=== PATIENT | male | born 1960 | race Caucasian/White ===

== ENCOUNTER 2018-10-12 05:09 | Day surgery (SDC) | payer BC ==
[2018-10-12] MEDS ORDERED: Propofol 200 MG/20 ML SDV IV ONE (05:10)
[2018-10-12] MEDS ORDERED: Lidocaine 1% PF 2 ML SDV INJECT ONE (05:10)
[2018-10-12] MEDS ORDERED: Lactated Ringers 1,000 ML IV SCH (07:15)
--- NOTE | 2018-10-12 08:41 | PCM.OPNOTE ---
- General Post-Op/Procedure Note Date of Surgery/Procedure: 10/12/18 Operative Procedure(s): c scope with bx Findings: cecal polyp Pre Op Diagnosis: screening Post-Op Diagnosis: cecal polyp Anesthesia Technique: MAC Primary Surgeon: Stevo Waller Anesthesia Provider: Slick Arreola Pathology: cecal polyp Complications: None Condition: Good Free Text/Narrative:: see dictation
--- NOTE | 2018-10-12 12:29 | OR ---
DATE OF OPERATION: 10/12/2018 SURGEON: Stevo Waller MD PROCEDURE PERFORMED: Colonoscopy with cold forceps biopsy. PREOPERATIVE DIAGNOSIS: Need for screening C-scope. POSTOPERATIVE DIAGNOSIS: Cecal polyp. INDICATIONS FOR PROCEDURE: This is a 58-year-old white male, referred for routine screening colonoscopy. He was offered and accepted same. DESCRIPTION OF OPERATION: After an excellent IV sedation was administered, digital rectal exam was performed. No marked abnormality was noted. Flexible colonoscope was inserted and advanced to the cecum. Prep was excellent. The following findings were noted. Ascending colon, in the cecum, small 5 mm appearing lesion, biopsied with cold biopsy forceps and sent for permanent. Photo was as well taken. Transverse colon, unremarkable. Descending colon, unremarkable. Sigmoid and rectum, unremarkable. Colon was deflated. Scope was removed. Results by letter. /[id number] /MODL
== END 2018-10-12 09:31 | disposition home or self-care (01) ==
LOC: FB.SDS 05:09
PROVIDERS: ATTEND Surgery
DX: Z12.11 Encounter for screening for malignant neoplasm of colon (principal); D12.0 Benign neoplasm of cecum; G47.33 Obstructive sleep apnea (adult) (pediatric); K21.9 Gastro-esophageal reflux disease without esophagitis; F41.9 Anxiety disorder, unspecified; F32.9 Major depressive disorder, single episode, unspecified; Z87.891 Personal history of nicotine dependence; Z79.82 Long term (current) use of aspirin; Z79.899 Other long term (current) drug therapy; Z99.89 Dependence on other enabling machines and devices
CPT/HCPCS: 45380; J2001; J2704; J7120; 88305

== ENCOUNTER 2023-12-15 06:35 | Day surgery (SDC) | payer BC ==
[2023-12-15] MEDS ORDERED: Lidocaine 2% 100 MG/5 ML Syringe IVPUSH ONE (06:36)
[2023-12-15] MEDS ORDERED: Propofol 200 MG/20 ML SDV IV ONE (06:36)
[2023-12-15] MEDS ORDERED: Midazolam 1 MG/ML 2 ML SDV IV ONE (06:36)
[2023-12-15] MEDS ORDERED: Glycopyrrolate 0.2 MG/ML 5 ML MDV IV ONE (06:36)
[2023-12-15] MEDS ORDERED: Sodium Chloride 0.9% 10 ML Syringe FLUSH PRN (06:45)
[2023-12-15] MEDS: Lactated Ringers 1,000 ML IV SCH (07:31)
[2023-12-15] MEDS: Simethicone Drops 40 MG/0.6 ML 30 ML Bottle ONE (07:55)
== END 2023-12-15 09:38 | disposition home or self-care (01) ==
LOC: FB.SDS 06:35
PROVIDERS: ATTEND Surgery
DX: Z12.11 Encounter for screening for malignant neoplasm of colon (principal); D12.0 Benign neoplasm of cecum; D12.6 Benign neoplasm of colon, unspecified; Z86.010 Personal history of colon polyps; F41.9 Anxiety disorder, unspecified; F32.A Depression, unspecified; E78.5 Hyperlipidemia, unspecified; Z87.891 Personal history of nicotine dependence; Z79.82 Long term (current) use of aspirin; Z79.899 Other long term (current) drug therapy
CPT/HCPCS: 00811; 45384; 45385; 88305; A9270; J1596; J2250; J2704; J7120